=== PATIENT | female | born 1980 | race Caucasian/White ===

== ENCOUNTER → 2021-06-28 | Outpatient (CLI) | payer OTHER ==
--- NOTE | 2021-06-29 08:10 | REP ---
INDICATION: ABD PAIN COMPARISON: None. TECHNIQUE: Real time garibay scale ultrasound examination using curved array transducer. FINDINGS: Liver and spleen are normal in contour, size, and echogenicity without focal hepatic or splenic lesions identified. The gallbladder demonstrates multiple small mobile gallstones without wall thickening, or pericholecystic fluid. No biliary ductal dilatation is appreciated and the common bile duct measures 5.8 mm diameter. Right kidney is normal in reniform shape without hydronephrosis and measures 11.3 x 5.2 x 3.8 cm. No ascites in the visualized right upper quadrant. IMPRESSION: 1. Cholelithiasis. <Electronically signed by Akhil Rayo > 06/29/21 [id number]
== END ==
LOC: M RAD 17:01
PROVIDERS: ATTEND Nurse Practitioner Family
DX: K80.80 Other cholelithiasis without obstruction (principal)